=== PATIENT | female | born 1990 | race Caucasian/White ===

== ENCOUNTER 2024-06-16 20:16 | Emergency (ER) | payer MEDICAID ==
[2024-06-16] MEDS: Losartan 50 MG Tab PO ONE (20:47)
== END 2024-06-16 20:50 | disposition home or self-care (01) ==
LOC: JP.ED 20:16
DX: I10 Essential (primary) hypertension (principal); Z86.16 Personal history of COVID-19; Z87.891 Personal history of nicotine dependence; Z79.899 Other long term (current) drug therapy
CPT/HCPCS: 99283; A9270

== ENCOUNTER 2024-08-19 13:36 | Emergency (ER) | payer MEDICAID ==
[2024-08-19] MEDS ORDERED: Acetaminophen 500 MG Tab PO ONE (14:41)
== END 2024-08-19 15:03 | disposition left against medical advice (07) ==
LOC: JP.ED 13:36
DX: R05.9 Cough, unspecified (principal); I10 Essential (primary) hypertension; Z86.16 Personal history of COVID-19; Z79.899 Other long term (current) drug therapy
CPT/HCPCS: 99283

== ENCOUNTER 2024-10-15 19:27 | Emergency (ER) | payer MEDICAID ==
[2024-10-15] MEDS: Acetaminophen 500 MG Tab PO ONE (20:59)
== END 2024-10-15 21:31 | disposition home or self-care (01) ==
LOC: JP.ED 19:27
DX: S63.621A Sprain of interphalangeal joint of right thumb, initial encounter (principal); I10 Essential (primary) hypertension; F17.210 Nicotine dependence, cigarettes, uncomplicated; Z86.16 Personal history of COVID-19; Z79.899 Other long term (current) drug therapy; W22.8XXA Striking against or struck by other objects, initial encounter
CPT/HCPCS: 73140; 99283; A9270

== ENCOUNTER 2024-11-20 14:36 | Emergency (ER) | payer MEDICAID ==
[2024-11-20] MEDS: cefTRIAXone 1 GM, Lidocaine 1% 2.1 ML IM ONE (15:17)
== END 2024-11-20 15:39 | disposition home or self-care (01) ==
LOC: JP.ED 14:36
DX: K04.7 Periapical abscess without sinus (principal); I10 Essential (primary) hypertension; F17.210 Nicotine dependence, cigarettes, uncomplicated; Z86.16 Personal history of COVID-19; Z79.899 Other long term (current) drug therapy
CPT/HCPCS: 96372; 99282; J0696; 99283; J2003

== ENCOUNTER 2025-01-14 17:15 | Emergency (ER) | payer MEDICAID ==
[2025-01-14] MEDS: Sodium Chloride 0.9% 1,000 ML IV ONE (18:19)
[2025-01-14] MEDS: Sodium Chloride 0.9% 10 ML Syringe FLUSH PRN (18:19)
[2025-01-14 18:25] LABS: BASOPHILS ABSOLUTE AUTO 0.04 K/uL (0.00-0.10); BASOPHILS PERCENT AUTO 0.5 % (0.1-1.3); EOSINOPHILS ABSOLUTE AUTO 0.16 K/uL (0.00-0.40); EOSINOPHILS PERCENT AUTO 1.8 % (0.0-5.4); HEMATOCRIT 38.8 % (34.3-46.0); HEMOGLOBIN 13.5 g/dL (11.2-15.5); IMMATURE GRAN ABSOLUTE AUTO 0.02 K/uL (0.00-0.23); IMMATURE GRAN PERCENT AUTO 0.2 % (0.0-0.7); LYMPHOCYTES ABSOLUTE AUTO 1.94 K/uL (0.8-3.3); LYMPHOCYTES PERCENT AUTO 21.9 % (11.4-47.7); MEAN CORPUSCULAR HEMOGLOBIN 30.1 pg (31.6-35.5); MEAN CORPUSCULAR HGB CONC 34.8 g/dL (31.6-35.5); MEAN CORPUSCULAR VOLUME 86.6 fL (81.4-99.0); MONOCYTES ABSOLUTE AUTO 0.49 K/uL (0.20-0.90); MONOCYTES PERCENT AUTO 5.5 % (3.3-12.6); NEUTROPHILS ABSOLUTE AUTO 6.19 K/uL (1.0-7.6); NEUTROPHILS PERCENT AUTO 70.1 % (40.0-78.1); PLATELET COUNT,PLT 250 K/uL (130-375); RED BLOOD CELL COUNT 4.48 M/uL (3.77-5.24); WHITE BLOOD CELL COUNT,WBC 8.8 K/uL (3.2-11.0)
[2025-01-14 18:41] LABS: ANION GAP 9.9 mmol/L (5.0-14.0); CALCIUM 8.7 mg/dL (8.5-10.1); CREATININE 1.4 mg/dL (0.6-1.0); EST CRCL DRUG DOSING (CG) 52.5 mL/min; POTASSIUM,K 4.1 mmol/L (3.6-5.2)
[2025-01-14] MEDS: Sodium Chloride 0.9% 100 ML IV SCH (19:04)
[2025-01-14] MEDS: Iopamidol 755 Mg/ML 100 ML Bottle IV SCH (19:04)
[2025-01-14] MEDS: LORazepam 2 MG/ML SDV IVPUSH ONE (20:26)
== END 2025-01-14 21:41 ==
LOC: JP.ED 17:15
DX: I67.1 Cerebral aneurysm, nonruptured (principal); I12.9 Hypertensive chronic kidney disease with stage 1 through stage 4 chronic kidney disease, or unspecified chronic kidney disease; F17.210 Nicotine dependence, cigarettes, uncomplicated; N18.30 Chronic kidney disease, stage 3 unspecified; Z79.899 Other long term (current) drug therapy; Z86.16 Personal history of COVID-19
CPT/HCPCS: 36415; 70450; 70496; 70498; 80048; 83735; 85025; 96361; 96374; 99285; J2060; J7030; Q9967

== ENCOUNTER 2025-02-10 20:49 | Emergency (ER) | payer MEDICAID ==
[2025-02-10] MEDS ORDERED: Sodium Chloride 0.9% 1,000 ML IV SCH (21:00)
[2025-02-10] MEDS ORDERED: Ondansetron 4 MG/2 ML SDV IVPUSH ONE (21:31)
[2025-02-10] MEDS ORDERED: Sodium Chloride 0.9% 10 ML Syringe FLUSH PRN (21:33)
[2025-02-10 21:53] LABS: BASOPHILS ABSOLUTE AUTO 0.05 K/uL (0.00-0.10); BASOPHILS PERCENT AUTO 0.6 % (0.1-1.3); EOSINOPHILS ABSOLUTE AUTO 0.24 K/uL (0.00-0.40); EOSINOPHILS PERCENT AUTO 2.8 % (0.0-5.4); HEMATOCRIT 32.5 % (34.3-46.0); HEMOGLOBIN 11.6 g/dL (11.2-15.5); IMMATURE GRAN ABSOLUTE AUTO 0.03 K/uL (0.00-0.23); IMMATURE GRAN PERCENT AUTO 0.4 % (0.0-0.7); LYMPHOCYTES ABSOLUTE AUTO 2.03 K/uL (0.8-3.3); LYMPHOCYTES PERCENT AUTO 23.7 % (11.4-47.7); MEAN CORPUSCULAR HEMOGLOBIN 31.4 pg (31.6-35.5); MEAN CORPUSCULAR HGB CONC 35.7 g/dL (31.6-35.5); MEAN CORPUSCULAR VOLUME 88.1 fL (81.4-99.0); MONOCYTES ABSOLUTE AUTO 0.64 K/uL (0.20-0.90); MONOCYTES PERCENT AUTO 7.5 % (3.3-12.6); NEUTROPHILS ABSOLUTE AUTO 5.56 K/uL (1.0-7.6); PLATELET COUNT,PLT 254 K/uL (130-375); RED BLOOD CELL COUNT 3.69 M/uL (3.77-5.24); WHITE BLOOD CELL COUNT,WBC 8.6 K/uL (3.2-11.0)
[2025-02-10 22:13] LABS: A/G RATIO 0.8 (1.2-2.2); ALBUMIN 3.1 g/dL (3.4-5.0); ALKALINE PHOSPHATASE 84 U/L (46-116); ANION GAP 9.2 mmol/L (5.0-14.0); BILIRUBIN TOTAL 0.3 mg/dL (0.2-1.0); BLOOD UREA NITROGEN,BUN 32 mg/dL (7-18); CARBON DIOXIDE,CO2 26 mmol/L (21-32); CHLORIDE,CL 105 mmol/L (100-108); CREATININE 1.7 mg/dL (0.6-1.0); EST CRCL DRUG DOSING (CG) 43.24 mL/min; ESTIMATED GFR 40 mL/min (>60); GLUCOSE RANDOM 108 mg/dL (74-106); POTASSIUM,K 4.1 mmol/L (3.6-5.2); PROTEIN TOTAL,TP 6.8 g/dL (6.4-8.2); SODIUM,NA 140 mmol/L (140-148)
[2025-02-10 22:14] LABS: ALANINE AMINOTRANSFERASE,ALT 33 U/L (12-78); ASPARTATE AMNIOTRANSFERASE,AST 22 U/L (15-37); CALCIUM 8.5 mg/dL (8.5-10.1)
[2025-02-10] MEDS: HYDROmorphone 0.5 MG/0.5 ML Syringe IVPUSH ONE ×2 (22:44→23:02)
[2025-02-10] MEDS: Ondansetron 4 MG/2 ML SDV IVPUSH ONE (23:02)
== END 2025-02-10 23:45 | disposition home or self-care (01) ==
LOC: JP.ED 20:49
DX: G43.909 Migraine, unspecified, not intractable, without status migrainosus (principal); I67.1 Cerebral aneurysm, nonruptured; I10 Essential (primary) hypertension; Z79.82 Long term (current) use of aspirin; Z79.899 Other long term (current) drug therapy; Z86.16 Personal history of COVID-19
CPT/HCPCS: 36415; 70450; 80053; 85025; 96374; 99284-25

== ENCOUNTER 2025-02-18 19:02 | Emergency (ER) | payer MEDICAID ==
[2025-02-18 20:32] LABS: BASOPHILS ABSOLUTE AUTO 0.03 K/uL (0.00-0.10); BASOPHILS PERCENT AUTO 0.3 % (0.1-1.3); EOSINOPHILS ABSOLUTE AUTO 0.43 K/uL (0.00-0.40); EOSINOPHILS PERCENT AUTO 4.3 % (0.0-5.4); HEMATOCRIT 35.8 % (34.3-46.0); IMMATURE GRAN ABSOLUTE AUTO 0.05 K/uL (0.00-0.23); IMMATURE GRAN PERCENT AUTO 0.5 % (0.0-0.7); LYMPHOCYTES ABSOLUTE AUTO 1.13 K/uL (0.8-3.3); LYMPHOCYTES PERCENT AUTO 11.4 % (11.4-47.7); MEAN CORPUSCULAR HEMOGLOBIN 30.2 pg (31.6-35.5); MEAN CORPUSCULAR HGB CONC 33.5 g/dL (31.6-35.5); MEAN CORPUSCULAR VOLUME 89.9 fL (81.4-99.0); MONOCYTES ABSOLUTE AUTO 0.87 K/uL (0.20-0.90); MONOCYTES PERCENT AUTO 8.8 % (3.3-12.6); NEUTROPHILS ABSOLUTE AUTO 7.43 K/uL (1.0-7.6); NEUTROPHILS PERCENT AUTO 74.7 % (40.0-78.1); PLATELET COUNT,PLT 222 K/uL (130-375); RED BLOOD CELL COUNT 3.98 M/uL (3.77-5.24); WHITE BLOOD CELL COUNT,WBC 9.9 K/uL (3.2-11.0)
[2025-02-18 20:50] LABS: C-REACTIVE PROTEIN 4.65 mg/dL (<0.50); CALCIUM 8.9 mg/dL (8.5-10.1); CREATININE 1.6 mg/dL (0.6-1.0); EST CRCL DRUG DOSING (CG) 45.94 mL/min; POTASSIUM,K 4.3 mmol/L (3.6-5.2)
[2025-02-18 21:20] LABS: LACTIC ACID 0.6 mmol/L (0.4-2.0)
[2025-02-18 21:23] LABS: APPEARANCE,URINE CLEAR (CLEAR); BILIRUBIN,URINE NEGATIVE (NEGATIVE); COLOR,URINE YELLOW (YELLOW); GLUCOSE,URINE NEGATIVE (NEGATIVE); KETONES,URINE NEGATIVE (NEGATIVE); LEUKOCYTE ESTERASE,URINE NEGATIVE (NEGATIVE); NITRITE,URINE NEGATIVE (NEGATIVE); OCCULT BLOOD,URINE NEGATIVE (NEGATIVE); PROTEIN,URINE 100 mg/dL (NEGATIVE); UROBILINOGEN,URINE 0.2 EU/dL (0.2-1.0)
[2025-02-18 21:29] LABS: RBC,URINE NOT SEEN (0-5)
[2025-02-18 21:30] LABS: AMORPHOUS SEDIMENT,URINE NOT SEEN; BACTERIA,URINE RARE; EPITHELIAL CELLS,URINE FEW; MUCUS,URINE RARE; WBC,URINE 0-5 (0-5)
== END 2025-02-18 22:50 | disposition home or self-care (01) ==
LOC: JP.ED 19:02
DX: J18.9 Pneumonia, unspecified organism (principal); I10 Essential (primary) hypertension; Z86.16 Personal history of COVID-19; Z79.82 Long term (current) use of aspirin; Z79.899 Other long term (current) drug therapy
CPT/HCPCS: 36415; 71046; 71046-26; 80048; 81001; 83605; 85025; 86140; 99284

== ENCOUNTER 2025-04-01 19:01 | Emergency (ER) | payer MEDICAID ==
[2025-04-01] MEDS: Sodium Chloride 0.9% 1,000 ML IV SCH (20:50)
[2025-04-01] MEDS: Metoclopramide 10 MG/2 ML SDV IVPUSH ONE (20:50)
== END 2025-04-01 21:52 | disposition home or self-care (01) ==
LOC: JP.ED 19:01
DX: G43.909 Migraine, unspecified, not intractable, without status migrainosus (principal); E86.0 Dehydration; I10 Essential (primary) hypertension; Z86.16 Personal history of COVID-19; Z79.82 Long term (current) use of aspirin; Z79.899 Other long term (current) drug therapy
CPT/HCPCS: 70450; 96361; 96374; 99283; J2765; J7030